=== PATIENT | male | born 1955 | race Caucasian/White ===

== ENCOUNTER 2019-08-16 07:17 | Emergency (ER) | payer MEDICARE, OTHER ==
[~2019-08-16] VITALS: Ht 177.8 cm; Wt 85.0 kg
--- NOTE | 2019-08-16 07:17 | NUR ---
Patient BIBA ALS, transferred to bed 9. RN evaluating patient at bedside.
[2019-08-16 07:37] VITALS: BP 181/84
--- NOTE | 2019-08-16 07:37 | NUR ---
PT BROUGHT IN BY EMS, FOUND IN THE STREETS C/O R ARM PAIN. INAPPROPRIATE ANSWERS TO ALL QUESTIONS. NO TRAUMA OR INJURIES NOTED. MOVING ALL EXTREMITIES EQUALLY. NO FACIAL ASSYMETRY. FULL CLEAR SPEECH. DENIES CANTU.
[2019-08-16] MEDS ORDERED: NACL 0.9% 1,000 ML IV SCH (08:07)
--- NOTE | 2019-08-16 08:15 | NUR ---
Patient taken to CT scan via gurney by [facility].
--- NOTE | 2019-08-16 08:35 | NUR ---
PT RETURNED FROM CT.
--- NOTE | 2019-08-16 08:41 | NUR ---
XRAY AT BEDSIDE.
[2019-08-16 09:01] LABS: PROTHROMBIN TIME 10.9 secs (10.8-13.4)
[2019-08-16 09:06] LABS: ANION GAP 18.2 (8-16); CARBON DIOXIDE 25.6 mmol/L (21-32); CREATININE 0.9 mg/dL (0.7-1.3); POTASSIUM 3.8 mmol/L (3.5-5.1)
[2019-08-16 09:09] LABS: SALICYLATE 5.9 mg/dL (2.8-20.0)
[2019-08-16 09:12] LABS: ALBUMIN 4.5 g/dL (3.4-5.0); TOTAL BILIRUBIN 1.1 mg/dL (0.0-1.0)
[2019-08-16 09:13] LABS: ACETAMINOPHEN < 0.5 ug/ml (10-30)
[2019-08-16 09:19] LABS: HEMATOCRIT 48.7 % (36-52); HEMOGLOBIN 16.6 g/dL (12.0-18.0); MEAN CORPUSCULAR HEMOGLOBIN 32 pg (27-31); MEAN CORPUSCULAR HGB CONC 34 g/dL (33-37); MEAN CORPUSCULAR VOLUME 93.5 fL (80-94); PLATELET COUNT (AUTO) 285 K/uL (140-450); RED BLOOD CELL COUNT(AUTO) 5.21 MIL/uL (4.20-6.10); RED CELL DISTRIBUTION WIDTH 13.8 % (11.6-13.7); WHITE BLOOD COUNT (AUTO) 11.9 K/uL (4.8-10.8)
--- NOTE | 2019-08-16 09:36 | NUR ---
PT STRAIGHT CATHETER WITH A 14 TAJIK, 30 CC OF URINE COLLECTED AND SUBMITTED TO LAB. PATIENT TOLERATED WELL.
--- NOTE | 2019-08-16 09:37 | NUR ---
c/o urgency with hesitancy
[2019-08-16 09:52] LABS: APPEARANCE,URINE CLEAR (CLEAR); BILIRUBIN,URINE NEGATIVE (NEGATIVE); BLOOD, URINE 2+ (NEGATIVE); COLOR,URINE YELLOW (YELLOW); LEUKOCYTE ESTERASE ,URINE NEGATIVE (NEGATIVE); NITRITE, URINE NEGATIVE (NEGATIVE); PH,URINE 8.5 (5.0-9.0); UGLUCOSE NEGATIVE (NEGATIVE)
[2019-08-16 09:58] LABS: BARBITURATE, URINE NEG. ng/ml (NEG <=200); BENZODIAZEPINE, URINE NEG. ng/mL (NEG <=200); CANNABINOID, URINE POS. ng/mL (NEG <=50); COCAINE, URINE NEG. ng/mL (NEG <=300); OPIATE, URINE NEG. ng/mL (NEG <=2000); PHENCYCLIDINE SCREEN,URINE NEG. ng/mL (NEG <=25)
[2019-08-16] MEDS ORDERED: PIPERACILLIN/TAZOBACTAM 3.375 GM in DEXTROSE 5% 50 ML IV ONE (10:20)
[2019-08-16] MEDS ORDERED: NACL 0.9% 1,000 ML IV ONE (10:20)
[2019-08-16 10:24] LABS: BASOPHILS % (MANUAL) 0 % (0-2); EOSINOPHILS % (MANUAL) 0 % (0-4); LYMPHOCYTES % (MANUAL) 5 % (20-46); MONOCYTES % (MANUAL) 2 % (5-12)
[2019-08-16] MEDS ORDERED: PIPERACILLIN/TAZOBACTAM 3.375 GM VIAL IV ONE (10:28)
--- NOTE | 2019-08-16 10:32 | NUR ---
[facility] at bedside for ALS transfer to [facility] ED.
[2019-08-16 10:39] LABS: RBC,URINE 0-5 /HPF (0-5)
[2019-08-16 10:40] LABS: WBC,URINE 0 /HPF (0-5)
--- NOTE | 2019-08-16 10:44 | NUR ---
Patient to be transferred to [facility]. Is being transferred due to . Receiving facility has accepting physician and available space. ER physician has signed transfer form. Patient or responsible green party has agreed to transfer and signed form. Patient belongings inventoried and will be sent with patient. Copy of nursing notes, lab reports, EKG, Physicians Orders and X-rays to be sent with patient. Report called to at receiving facility. ambulance service has been called for transfer. ETA is .
[2019-08-16 10:48] VITALS: BP 174/84
--- NOTE | 2019-08-18 06:18 | NUR ---
Late entry. Confirmed with nurse that 1000ml 0.9 NS IV X2 both continued at time of transfer and ended in the ED at 1045.
--- NOTE | 2019-08-18 10:49 | NUR ---
Late entry. Confirmed with nurse that Zosyn IV continues at transport but ened in ED at 1047
== END 2019-08-16 10:45 | disposition short-term general hospital (02) ==
LOC: MED 07:17
DX: D72.829 Elevated white blood cell count, unspecified (principal); R74.0 Nonspecific elevation of levels of transaminase and lactic acid dehydrogenase [LDH]; I10 Essential (primary) hypertension; F17.210 Nicotine dependence, cigarettes, uncomplicated; F12.10 Cannabis abuse, uncomplicated
CPT/HCPCS: 36415; 70450; 71045; 80053; 80305; 81001; 83605; 84484; 85025; 85610; 85730; 87040; 87086; 93005; 96365; 99285; C1758; G0480; G0482; J2543; J7030